=== PATIENT | female | born 1995 | race Caucasian/White ===

== ENCOUNTER 2019-10-14 01:16 | Inpatient (IN) | payer OTHER ==
[2019-10-14] MEDS ORDERED: BUTORPHANOL 1 MG/ML INJ IV PRN (04:42)
[2019-10-14] MEDS ORDERED: CARBOPROST TROME 250 MCG/ML IM PRN (04:42)
[2019-10-14] MEDS ORDERED: Ringers Lactate 1,000 ML IV PRN (04:42)
[2019-10-14] MEDS ORDERED: METHYLERGONOVINE 0.2MG/ML AMP IM PRN (04:42)
[2019-10-14] MEDS ORDERED: PROMETHAZINE INJ 25 MG/ML AMP IM PRN (04:42)
[2019-10-14] MEDS ORDERED: Ringers Lactate 1,000 ML IV SCH (05:00)
[2019-10-14] MEDS ORDERED: OXYTOCIN/LR 20 UNIT/1,000 ML BAG IV SCH ×2 (05:00→11:00)
[2019-10-14 05:08] VITALS: BMI 33.5
[2019-10-14] MEDS ORDERED: PENICILLIN 5 MU in NA CHLORIDE 0.9% 100 ML IV ONE (05:11)
[2019-10-14 05:49] LABS: Absolute Lymphocytes (CBC) 2.4 K/uL (0.7-4.9); Basophils % 0.4 % (0-1.3); Hematocrit 37.8 % (36.0-45.0); Lymphocytes % 19.7 % (15.3-44.8); MPV 9.4 fL (7.6-11.3); RBC Red Blood Cell Count 3.89 M/uL (3.86-4.86)
[2019-10-14 05:59] LABS: Urine Appearance CLEAR; Urine Bilirubin NEGATIVE (NEG); Urine Blood NEGATIVE (NEG); Urine Color YELLOW; Urine Glucose NEGATIVE (NEG); Urine Protein NEGATIVE (NEG); Urine Specific Gravity <=1.005 (1.005-1.030); Urine Urobilinogen 0.2 mg/dL (0.2-1.0)
[2019-10-14 06:42] LABS: Urine Microscopic Reflex NO UMIC
[2019-10-14] MEDS ORDERED: FENTANYL CITR 100 MCG/2 ML IV ONE (07:52)
[2019-10-14] MEDS ORDERED: ROPIVACAINE HCL 100 ML IV PRN (07:52)
[2019-10-14] MEDS ORDERED: ROPIVACAINE HCL 0.2% 20ML AMP IV ONE (07:54)
[2019-10-14] MEDS ORDERED: PENICILLIN 2.5 MU in NA CHLORIDE 0.9% 100 ML IV SCH (09:00)
[2019-10-14] MEDS ORDERED: Oxycodone HCl/Acetaminophen 1 TAB TAB PO PRN ×2 (10:38)
[2019-10-14] MEDS ORDERED: DOCUSATE NA/SENNA CONC 1 TAB PO PRN (10:38)
[2019-10-14] MEDS ORDERED: IBUPROFEN 600 MG TAB PO PRN (10:38)
[2019-10-14] MEDS ORDERED: DIPHENHYDRAMINE 25 MG TAB/CAP PO PRN (10:38)
[2019-10-14] MEDS ORDERED: ACETAMINOPHEN 500 MG TAB PO PRN (10:38)
[2019-10-14] MEDS ORDERED: BISACODYL 10 MG RECTAL SUPP RECT PRN (10:38)
--- NOTE | 2019-10-14 14:23 | OP ---
Surgeon: Rico Heaton MD 24-year-old 8, para 2, AB 4, 40 weeks gestation, [place] came in late in the [facility]. Rh positive, immune to Rubella. Unknown beta strep screen, 3 to 3.5 cm this morning. Cont racting regularly. Rupture of membranes, clear fluid. Patient received epidural anesthesia went rap idly to complete second stage of 15 minutes to 20 minute. Spontaneous vaginal delivery of an estimat ed 8 pound plus or minus male infant. Apgars 9 and 9. No episiotomy. No laceration. Yeni perez of the placenta, which was inspected, and noted to be intact and normal. Less than 150 mL blood loss. Patient received 2 doses of penicillin. Final Diagnoses: Term intrauterine 40 weeks, vaginal delivery, epidural anesthesia, penici llin prophylaxis. ADRIAN/PELON Voice ID: [id number] Report ID: [id number]
[2019-10-14 20:57] LABS: RPR (Rapid Plasma Reagin) NON-REACT (NON-REACT)
[2019-10-15] MEDS ORDERED: METHYLERGONOVINE 0.2MG/ML AMP IM ONE (06:39)
[2019-10-15] MEDS ORDERED: OXYTOCIN/LR 0 UNIT/0 ML BAG IV ONE (06:40)
[2019-10-15 07:18] VITALS: BP 129/68; TEMP 98
[2019-10-16 02:11] LABS: HBsAG Nonreactive (Nonreactive)
--- NOTE | 2019-10-17 10:47 | DS ---
Date of Discharge: 10/15/2019 History: Modesta Barfield, 24-year-old female, 8 para 2 at 40 weeks gestation, delivered an 8- pounds 3-ounce male infant, Apgars 9 and 9. No episiotomy. No laceration. Schultze delivery of the placenta, was inspected and noted to be intact and normal. Very minimal blood loss, 150 or less mL. Rh positive, immune to Rubella. Beta strep status unknown, therefore patient received 2 doses of p enicillin during her labor at her request. ; afebrile, ambulating and voiding. Lochia is normal. She has had her Tdap immunization. Has no post epidural problems. Requests no analgesics o n dismissal. Full dismissal instructions given as well as Alexander instructions. Final Diagnoses: Term intrauterine . Vaginal delivery. Epidural anesthesia. Penicillin p rophylaxis. ENAC/MODL Voice ID: [id number] Report ID: [id number]
--- NOTE | 2019-10-17 10:53 | PREOPHP ---
Date of Admission: 10/14/2019 A 24-year-old 8, para 2, now at 40 weeks by best estimate. Been seen out of state, came in l ate in the . Does not know beta strep status. This was negative with the last . Patient has chosen to have a beta strep prophylaxis, penicillin 1 dose has been administered thus far . FHT is normal, reactive. Patient is luke regularly. She is 3.5 cm, 50% effaced, possibly 60- 1 station. Rupture of membranes, clear fluid. Anticipate more active labor. The patient probab ly will request epidural. Full labor talk given. Anticipate delivery sometime later today. ADRIAN/PELON Voice ID: [id number]
== END 2019-10-15 13:35 | disposition home or self-care (01) | DRG 807 ==
LOC: 2ND-WC 04:20
PROVIDERS: ADMIT Specialist; ATTEND Specialist
PROC: 10E0XZZ Delivery of Products of Conception, External Approach (ICD-10-PCS; principal; 2019-10-14)
DX: O48.0 Post-term pregnancy (principal); Z37.0 Single live birth; Z3A.40 40 weeks gestation of pregnancy
CPT/HCPCS: 36415; 81003; 85025; 86592; 86850; 86900; 86901; 87340; J2210; J2550; J2590; J2795; J3010; J7120